=== PATIENT | male | born 1990 | race Two or more races ===

== ENCOUNTER 2018-11-22 12:08 | Emergency (ER) | payer OTHER ==
[~2018-11-22] VITALS: Ht 175.3 cm; Wt 86.6 kg
[2018-11-22 12:53] VITALS: Ht 175.3 cm; Wt 86.6 kg
[2018-11-22 15:55] VITALS: BP 112/60
== END 2018-11-22 15:55 | disposition home or self-care (01) ==
LOC: ED 12:08
DX: S93.402A Sprain of unspecified ligament of left ankle, initial encounter (principal); X58.XXXA Exposure to other specified factors, initial encounter; Y93.69 Activity, other involving other sports and athletics played as a team or group; Y92.89 Other specified places as the place of occurrence of the external cause; Y99.8 Other external cause status

== ENCOUNTER → 2020-01-18 | Outpatient (CLI) | payer OTHER | END | disposition home or self-care (01) | LOC: MI 12:43 | PROC: BP3 Imaging, Non-Axial Upper Bones, Magnetic Resonance Imaging (MRI) (ICD-10-PCS; principal; 2020-01-18) | DX: M25.532 Pain in left wrist (principal) ==

== ENCOUNTER → 2020-12-14 | Outpatient (CLI) | payer OTHER | END | disposition home or self-care (01) | LOC: RD 09:41 | PROVIDERS: ATTEND Podiatrist | DX: M25.572 Pain in left ankle and joints of left foot (principal); M25.571 Pain in right ankle and joints of right foot; M72.2 Plantar fascial fibromatosis; M79.672 Pain in left foot; M79.671 Pain in right foot; M21.40 Flat foot [pes planus] (acquired), unspecified foot ==